=== PATIENT | male | born 1965 | race Caucasian/White ===

== ENCOUNTER → 2020-02-25 15:47 | Outpatient (BNVA) | payer BC, SELFPAY | PROVIDERS: Family Provider Nurse Practitioner Family; Visit Provider Dermatology | DX: B36.0 Pityriasis versicolor (principal); L28.0 Lichen simplex chronicus; L57.0 Actinic keratosis; L59.0 Erythema ab igne [dermatitis ab igne]; L82.1 Other seborrheic keratosis | CPT/HCPCS: 17000; 99203 ==